=== PATIENT | male | born 1960 | race Caucasian/White ===

== ENCOUNTER 2017-10-18 10:56 | Emergency (ER) | payer MEDICAID ==
[~2017-10-18] VITALS: Ht 172.7 cm; Wt 63.5 kg
--- NOTE | 2017-10-18 11:05 | NUR ---
pt bibra from neighbors home. c/o generalized weakness and unable to urinate. pt admits to drink beer stating it might help him urinate. appears anxious. placed on monitor. stable vitals. nad noted. awaiting md nielsen.
--- NOTE | 2017-10-18 11:07 | NUR ---
dr jain at bedside for eval.
--- NOTE | 2017-10-18 11:15 | NUR ---
iv line started blood drawn and sent to lab.
[2017-10-18] MEDS ORDERED: IV NS 0.9% 1,000 ML BAG IV ONE (11:30)
[2017-10-18 11:43] LABS: CREATININE 0.7 mg/dL (0.6-1.3); POTASSIUM 3.5 mmol/L (3.5-5.1)
[2017-10-18 11:44] LABS: INR 0.95 (0.87-1.13); PROTHROMBIN TIME 9.9 SECS (9.5-12.7)
--- NOTE | 2017-10-18 11:46 | NUR ---
radiology at bedside for chest xray.
[2017-10-18 11:48] LABS: ALBUMIN 4.3 g/dL (3.4-5.0); BILIRUBIN,DIRECT 0.1 mg/dL (0.0-0.2); BILIRUBIN,TOTAL 0.4 mg/dL (0.2-1.0); TOTAL PROTEIN, SERUM 8.2 g/dL (6.4-8.2)
[2017-10-18 11:49] LABS: TROPONIN I 0.046 ng/mL (0.00-0.056)
[2017-10-18 12:26] LABS: BASOPHILS # (AUTO) 0.1 /CMM (0.0-0.2); BASOPHILS % (AUTO) 1.1 % (0.0-2.0); EOSINOPHILS # (AUTO) 0.1 /CMM (0.0-0.7); HEMATOCRIT 46 % (39-51); HEMOGLOBIN 15.5 g/dL (13.5-17.5); LYMPHOCYTES # (AUTO) 2.5 /CMM (0.8-4.8); LYMPHOCYTES % (AUTO) 43.6 % (20.0-44.0); MEAN CORPUSCULAR HEMOGLOBIN 32 PG (26.0-33.0); MEAN CORPUSCULAR HGB CONC 34 g/dl (31.0-36.0); MEAN CORPUSCULAR VOLUME 93 fL (80-96); MONOCYTES # (AUTO) 0.6 /CMM (0.1-1.30); MONOCYTES % (AUTO) 9.8 % (2.0-12.0); NEUTROPHILS # (AUTO) 2.5 /CMM (1.8-8.9); NEUTROPHILS % (AUTO) 43.5 % (43.0-81.0); PLATELET COUNT (AUTO) 160 /CMM (150-450); RDW COEFFICIENT OF VARIATION 15.5 (11.5-15.0); RED BLOOD CELL COUNT(AUTO) 4.91 MIL/uL (4.5-6.0); WHITE BLOOD COUNT (AUTO) 5.7 K/uL (4.3-11.0)
[2017-10-18] MEDS ORDERED: MECLIZINE HCL 12.5 MG TABLET PO ONE (14:00)
[2017-10-18] MEDS ORDERED: MECLIZINE HCL 25 MG TABLET ONE (14:30)
--- NOTE | 2017-10-18 16:25 | NUR ---
Patient discharged to home in stable condition. Written and verbal after care instructions given. Patient verbalizes understanding of instruction.IV removed. Catheter intact and site benign. Pressure and 4x4 applied to site. No bleeding noted.
[2017-10-18 16:26] VITALS: BP 142/88
== END 2017-10-18 16:27 | disposition home or self-care (01) ==
LOC: ER 11:10
DX: R42 Dizziness and giddiness (principal); D86.9 Sarcoidosis, unspecified; F41.9 Anxiety disorder, unspecified
CPT/HCPCS: 36415; 71045-TC; 80048-TC; 80076-TC; 84484-TC; 85025-TC; 85730-TC; A4606; J7030; J8597; Z7610

== ENCOUNTER 2017-10-28 06:08 | Emergency (ER) | payer MEDICAID ==
[~2017-10-28] VITALS: Ht 165.1 cm; Wt 72.6 kg
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
[2017-10-28] MEDS ORDERED: IV NS 0.9% 1,000 ML BAG IV ONE (06:30)
[2017-10-28] MEDS ORDERED: LORAZEPAM INJ 2 MG/ML VIAL IV ONE (06:30)
[2017-10-28] MEDS ORDERED: MECLIZINE HCL 12.5 MG TABLET PO ONE (06:30)
[2017-10-28] MEDS ORDERED: MECLIZINE HCL 12.5 MG TABLET ONE ×2 (06:46→06:47)
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
[2017-10-28 07:38] LABS: BASOPHILS # (AUTO) 0.1 /CMM (0.0-0.2); BASOPHILS % (AUTO) 1.9 % (0.0-2.0); EOSINOPHILS # (AUTO) 0.1 /CMM (0.0-0.7); EOSINOPHILS % (AUTO) 1.8 % (0.0-6.0); HEMATOCRIT 45 % (39-51); HEMOGLOBIN 15.5 g/dL (13.5-17.5); LYMPHOCYTES # (AUTO) 1.2 /CMM (0.8-4.8); LYMPHOCYTES % (AUTO) 31.2 % (20.0-44.0); MEAN CORPUSCULAR HEMOGLOBIN 32 PG (26.0-33.0); MEAN CORPUSCULAR HGB CONC 35 g/dl (31.0-36.0); MEAN CORPUSCULAR VOLUME 92 fL (80-96); MONOCYTES # (AUTO) 0.4 /CMM (0.1-1.30); MONOCYTES % (AUTO) 10.9 % (2.0-12.0); NEUTROPHILS # (AUTO) 2.2 /CMM (1.8-8.9); NEUTROPHILS % (AUTO) 54.2 % (43.0-81.0); PLATELET COUNT (AUTO) 171 /CMM (150-450); RDW COEFFICIENT OF VARIATION 15.7 (11.5-15.0); RED BLOOD CELL COUNT(AUTO) 4.87 MIL/uL (4.5-6.0)
[2017-10-28 08:01] LABS: CALCIUM, SERUM 9.4 mg/dL (8.5-10.1); CREATININE 0.8 mg/dL (0.6-1.3)
--- NOTE | 2017-10-28 08:10 | NUR ---
Patient is resting comfortably in bed with eyes closed. Easily aroused. VSS
--- NOTE | 2017-10-28 10:20 | NUR ---
Patient is resting comfortably in bed with eyes closed. Easily aroused. VSS
--- NOTE | 2017-10-28 12:30 | NUR ---
Patient is resting comfortably in bed with eyes closed. Easily aroused. VSS
--- NOTE | 2017-10-28 12:45 | NUR ---
ASKED THE PATIENT IF HE WANTED TO EAT LUNCH BUT HE SAID HE DOESN'T WANT TO EAT AT THE MOMENT. WILL ASK HIM LATER AGAIN.
--- NOTE | 2017-10-28 14:56 | NUR ---
Patient is resting comfortably in bed with eyes closed. Easily aroused. VSS
--- NOTE | 2017-10-28 15:46 | NUR ---
ORLY ARRIVED AT BEDSIDE TO SPEAK TO PATIENT
[2017-10-28] MEDS ORDERED: LORAZEPAM 1 MG TABLET ONE (16:58)
[2017-10-28] MEDS ORDERED: LORAZEPAM 1 MG TABLET PO ONE (17:00)
--- NOTE | 2017-10-28 17:28 | NUR ---
IV removed. Catheter intact and site benign. Pressure and 4x4 applied to site. No bleeding noted.Patient discharged to home in stable condition. Written and verbal after care instructions given. Patient verbalizes understanding of instruction.
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
[2017-10-28 17:29] VITALS: BP 139/96
== END 2017-10-28 17:30 | disposition home or self-care (01) ==
LOC: ER 06:09
DX: F10.239 Alcohol dependence with withdrawal, unspecified (principal); E86.0 Dehydration; R00.2 Palpitations; D86.9 Sarcoidosis, unspecified
CPT/HCPCS: 36415; 80048; 85025; 93005; 96360; 99285; A4606; G0480; J7030; J8597 ×2; Z7610

== ENCOUNTER 2018-11-19 12:01 | Emergency (ER) | payer BC, MEDICAID, OTHER ==
[~2018-11-19] VITALS: Ht 167.6 cm; Wt 85.7 kg
--- NOTE | 2018-11-19 12:05 | NUR ---
BIBRA62, FROM HOME, SEIZURE, ON CPAP, LETHARGIC, 0.8 NITRO SPRAY GIVEN BY EMS, A&Ox2, TO ER BED 3, HOOKED TO MONITOR, CHANGED TO DR ISREAL MONTOYA LAURENCE AT BEDSIDE, OXYGEN VIA NC AT 5LPM.
[2018-11-19 12:19] LABS: BASOPHILS # (AUTO) 0.1 /CMM (0.0-0.2); BASOPHILS % (AUTO) 1.4 % (0.0-2.0); EOSINOPHILS % (AUTO) 0.6 % (0.0-6.0); HEMATOCRIT 31 % (39-51); HEMOGLOBIN 9.5 g/dL (13.5-17.5); LYMPHOCYTES # (AUTO) 0.5 /CMM (0.8-4.8); LYMPHOCYTES % (AUTO) 7.9 % (20.0-44.0); MEAN CORPUSCULAR HGB CONC 31 g/dl (31.0-36.0); MEAN CORPUSCULAR VOLUME 83 fL (80-96); MONOCYTES # (AUTO) 0.4 /CMM (0.1-1.30); MONOCYTES % (AUTO) 6.6 % (2.0-12.0); NEUTROPHILS # (AUTO) 5.5 /CMM (1.8-8.9); NEUTROPHILS % (AUTO) 83.5 % (43.0-81.0); PLATELET COUNT (AUTO) 129 /CMM (150-450); WHITE BLOOD COUNT (AUTO) 6.6 K/uL (4.3-11.0)
[2018-11-19 12:32] LABS: CALCIUM, SERUM 9.5 mg/dL (8.5-10.1); CREATININE 1.6 mg/dL (0.6-1.3)
[2018-11-19 12:46] LABS: ALBUMIN 4.4 g/dL (3.4-5.0); BILIRUBIN,TOTAL 1.7 mg/dL (0.2-1.0); TOTAL PROTEIN, SERUM 8.7 g/dL (6.4-8.2)
--- NOTE | 2018-11-19 12:48 | NUR ---
PT UNABLE TO PROVIDE URINE SAMPLE, REFUSED IN AND OUT CATHETER, MADE AWARE
[2018-11-19] MEDS ORDERED: THIAMINE HCL 100 MG TABLET ONE (13:24)
[2018-11-19] MEDS ORDERED: THIAMINE HCL 100 MG TABLET PO ONE (13:30)
--- NOTE | 2018-11-19 13:44 | NUR ---
Patient does not wish to proceed with medical care recommended by Dr. Swift. Patient given information related to possible complications, up to and including , which could occur as a result of leaving the hospital at this time. Patient verbalizes understanding of risks involved due to leaving against medical advice. Patient has signed AMA form.
[2018-11-19] MEDS ORDERED: DIAZEPAM 5 MG TABLET ONE (13:47)
--- NOTE | 2018-11-19 13:47 | NUR ---
received verbal order of valium 5mg po from dr blas.
[2018-11-19] MEDS ORDERED: DIAZEPAM 10 MG TABLET PO ONE (14:00)
[2018-11-19 14:10] VITALS: BP 130/80
== END 2018-11-19 14:12 | disposition left against medical advice (07) ==
LOC: ER 12:06
DX: E87.1 Hypo-osmolality and hyponatremia (principal); F10.239 Alcohol dependence with withdrawal, unspecified; R56.9 Unspecified convulsions; R00.0 Tachycardia, unspecified; Y90.9 Presence of alcohol in blood, level not specified
CPT/HCPCS: 36415; 71045-TC; 80048-TC; 80076-TC; 80305; 83880; 84484-TC; 85025-TC; 85730-TC; G0480

== ENCOUNTER 2019-06-06 21:44 | Emergency (ER) | payer BC | END 2019-06-07 00:27 | disposition home or self-care (01) | DX: S09.8XXA Other specified injuries of head, initial encounter (principal); F10.129 Alcohol abuse with intoxication, unspecified; W01.0XXA Fall on same level from slipping, tripping and stumbling without subsequent striking against object, initial encounter; Y93.01 Activity, walking, marching and hiking; Y92.89 Other specified places as the place of occurrence of the external cause; Y99.8 Other external cause status; Y90.9 Presence of alcohol in blood, level not specified | CPT/HCPCS: 70450; 72125; 82962; 99284; L0172 ==

== ENCOUNTER 2021-10-20 19:17 | Emergency (ER) | payer BC ==
[~2021-10-20] VITALS: Ht 175.3 cm; Wt 98.0 kg
[2021-10-20] MEDS ORDERED: ONDANSETRON HCL/PF 4 MG/2 ML VIAL IVP ONE (20:00)
[2021-10-20] MEDS ORDERED: PANTOPRAZOLE 40 MG VIAL IV ONE (20:00)
[2021-10-20] MEDS ORDERED: HYDROMORPHONE INJ 2 MG/ML DISP.SYRIN IV ONE (20:00)
[2021-10-20] MEDS ORDERED: ONDANSETRON HCL/PF 4 MG/2 ML VIAL ONE (20:01)
[2021-10-20] MEDS ORDERED: HYDROMORPHONE 1 MG/1 ML DISP.SYRIN ONE ×2 (20:01→20:45)
[2021-10-20] MEDS ORDERED: PANTOPRAZOLE 40 MG VIAL ONE (20:01)
--- NOTE | 2021-10-20 20:11 | NUR ---
BIBRA 62 FROM HOME C/O ABD PAIN STARTED 1 HR AGO RAD TO BACK S/P EATING IN[employer]ESIAN FOOD. STATES IT WAS HIS FIRST TIME EATING IN[employer]ESIAN FOOD. PT CHANGED INTO A GOWN AND PLACED ON MONITOR. UPON V/S ASSESSMENT PT TACHYCARDIC AND HYPERTENSIVE. MD WAS AT THE BEDSIDE FOR EVAL.
--- NOTE | 2021-10-20 20:20 | NUR ---
POC BS 161
[2021-10-20 20:29] LABS: BASOPHILS % (AUTO) 0.2 % (0.0-2.0); EOSINOPHILS % (AUTO) 0.9 % (0.0-6.0); HEMATOCRIT 47 % (39-51); HEMOGLOBIN 15.2 g/dL (13.5-17.5); LYMPHOCYTES # (AUTO) 0.5 K/uL (0.8-4.8); MEAN CORPUSCULAR HGB CONC 33 g/dl (31.0-36.0); MEAN CORPUSCULAR VOLUME 93 fL (80-96); MONOCYTES # (AUTO) 0.4 K/uL (0.1-1.30); MONOCYTES % (AUTO) 3.9 % (2.0-12.0); NEUTROPHILS # (AUTO) 10.4 K/uL (1.8-8.9); PLATELET COUNT (AUTO) 163 K/uL (150-450); WHITE BLOOD COUNT (AUTO) 11.4 K/uL (4.3-11.0)
[2021-10-20] MEDS ORDERED: HYDROMORPHONE 1 MG/1 ML DISP.SYRIN IV ONE (21:00)
[2021-10-20] MEDS ORDERED: IV NS 0.9% 1,000 ML BAG IV ONE (21:00)
[2021-10-20] MEDS ORDERED: LABETALOL HCL IV 100MG VIAL IV ONE (22:00)
[2021-10-20] MEDS ORDERED: LABETALOL HCL IV 100MG VIAL ONE (22:10)
[2021-10-20 22:18] LABS: CALCIUM, SERUM 9.8 mg/dL (8.5-10.1); CREATININE 1.8 mg/dL (0.6-1.3); POTASSIUM 3.9 mmol/L (3.5-5.1)
[2021-10-20 22:27] LABS: ALBUMIN 4.1 g/dL (3.4-5.0); BILIRUBIN,DIRECT 0.4 mg/dL (0.0-0.2); BILIRUBIN,TOTAL 0.8 mg/dL (0.2-1.0); TOTAL PROTEIN, SERUM 7.4 g/dL (6.4-8.2)
--- NOTE | 2021-10-20 22:48 | NUR ---
URINE COLLECTED AND SENT TO LAB
[2021-10-20 23:24] LABS: BILIRUBIN,URINE NEGATIVE (NEGATIVE); COLOR,URINE YELLOW (YELLOW); LEUKOCYTE ESTERASE ,URINE NEGATIVE (NEGATIVE); NITRITE, URINE NEGATIVE (NEGATIVE); PH,URINE 5.5 (5.0-8.0); PROTEIN,URINE 100 mg/dl (NEGATIVE); UGLUCOSE NEGATIVE (NEGATIVE); UROBILINOGEN,URINE 0.2 EU/dL (0.2)
[2021-10-20 23:43] LABS: BACTERIA,URINE None seen /HPF (None Seen); RBC,URINE 0-2 /HPF (0-2); SQUAMOUS EPITHELIAL CELL,UR Few /HPF (None Seen); WBC,URINE 0-2 /HPF (0-3)
--- NOTE | 2021-10-21 00:06 | NUR ---
Patient discharged to home in stable condition. Written and verbal after care instructions given. Patient verbalizes understanding of instruction. IV line discontinued and pt picked up by family member.
[2021-10-21 00:08] VITALS: BP 140/100
== END 2021-10-21 00:09 | disposition home or self-care (01) ==
LOC: ER 19:28
DX: R10.13 Epigastric pain (principal); R10.10 Upper abdominal pain, unspecified; R00.0 Tachycardia, unspecified
CPT/HCPCS: 36415; 74176; 80048; 80076; 80307; 80320; 81001; 82962; 83690; 85025; 93005; 96361; 96374; 96375; 99285; C9113; J1170 ×2; J2405; J3490; J7030; G0480